=== PATIENT | female | born 2000 | race Two or more races ===

== ENCOUNTER 2021-06-14 15:08 | Emergency (ER) | payer BC ==
[~2021-06-14 15:08] MED LIST: CYCLOBENZAPRINE10 MG PO; IBU800 MG PO
== END 2021-06-14 15:58 | disposition home or self-care (01) ==
LOC: ER1 15:08
DX: R05.9 Cough, unspecified (principal); J02.9 Acute pharyngitis, unspecified; Z20.822 Contact with and (suspected) exposure to COVID-19
CPT/HCPCS: 87081; 87880; 99283; U0002